=== PATIENT | female | born 1955 | race African-American/Black ===

== ENCOUNTER 2017-08-07 12:14 | Emergency (ER) | payer MEDICAID ==
[~2017-08-07] VITALS: Ht 160 cm; Wt 86.0 kg
[2017-08-07] MEDS ORDERED: LOSA25TA12 PO (12:27)
[2017-08-07 15:10] VITALS: BP 179/88
[2017-08-07] MEDS ORDERED: NITROGLYCERIN OINT 1GM/INCH UDPKT TD STA (15:52)
[2017-08-07] MEDS ORDERED: ASPIRIN 325MG EC TABLET PO ONE (16:00)
[2017-08-07 16:14] LABS: BASOPHILS % 0.5 % (0.0-2.0); EOSINOPHILS % 1.2 % (0.0-5.0); HEMATOCRIT. 37.2 % (36.0-48.0); HEMOGLOBIN. 12.4 g/dL (12.0-16.0); LYMPHOCYTES % 17.1 % (20.0-50.0); MEAN CORPUSCULAR HEMOGLOBIN 28.5 pg (28.0-32.0); MEAN CORPUSCULAR VOLUME 85.3 fL (81.0-99.0); MEAN PLATELET VOLUME 8.8 fl (7.4-10.4); MONOCYTES % 9.1 % (2.0-8.0); NEUTROPHILS % 72.1 % (40.0-76.0); PLATELET 268 x1000/uL (130-400); RED BLOOD CELL COUNT 4.36 mill/uL (4.2-5.4); RED CELL DISTRIBUTION WIDTH 14.6 % (11.6-14.6)
[2017-08-07 16:24] LABS: D-DIMER 0.81 mg/L FEU (<0.50); PARTIAL THROMBOPLASTIN TIME 28.6 sec (23.4-31.0); PROTHROMBIN TIME 10.7 sec (9.4-11.6)
[2017-08-07 16:31] LABS: CHLORIDE 109 mEq/L (98-107)
== END 2017-08-07 18:54 | disposition left against medical advice (07) ==
LOC: ER 14:01
DX: R07.89 Other chest pain (principal); R05 Cough; I10 Essential (primary) hypertension; Z98.890 Other specified postprocedural states
CPT/HCPCS: 36415; 71045; 80053; 83690; 83880; 84484; 85025; 85379; 85610; 85730; 93005; 99285; Z7610

== ENCOUNTER 2018-10-21 10:30 | Emergency (ER) | payer MEDICAID ==
[~2018-10-21] VITALS: Ht 165.1 cm; Wt 95.0 kg
[~2018-10-21 10:30] MED LIST: LOSA25TA12 PO
[2018-10-21] MEDS ORDERED: IBUPROFEN 600MG TABLET PO STA (11:46)
[2018-10-21] MEDS ORDERED: ALBUTEROL (0.083%) 2.5MG/3ML NEB HHN ONE (12:00)
[2018-10-21] MEDS ORDERED: LOSARTAN POTASSIUM 100 MG TABLET PO ONE (13:00)
[2018-10-21 14:45] VITALS: BP 158/82
== END 2018-10-21 14:47 | disposition home or self-care (01) ==
LOC: ER 10:30
DX: M79.10 Myalgia, unspecified site (principal); R05 Cough; I10 Essential (primary) hypertension; Z98.890 Other specified postprocedural states; Z79.899 Other long term (current) drug therapy
CPT/HCPCS: 71045; 87804; 93005; 94640; 99284; J7611

== ENCOUNTER 2021-04-19 11:16 | Emergency (ER) | payer OTHER, MEDICAID ==
[~2021-04-19] VITALS: Ht 165.1 cm; Wt 90.0 kg
[~2021-04-19 11:16] MED LIST changes: -LOSA25TA12 PO; +LOSA25TA26 PO
[2021-04-19] MEDS ORDERED: SODIUM CHLORIDE 0.9% 1,000 ML IV ONE (16:00)
[2021-04-19] MEDS ORDERED: NITROGLYCERIN 0.4MG TABLET SL SL PRN (16:15)
[2021-04-19 16:32] LABS: BASOPHILS % 0.3 % (0.0-2.0); EOSINOPHILS % 0.6 % (0.0-5.0); HEMATOCRIT. 32.9 % (36.0-48.0); HEMOGLOBIN. 11.3 g/dL (12.0-16.0); LYMPHOCYTES % 29.6 % (20.0-50.0); MEAN CORPUSCULAR HEMOGLOBIN 29.9 pg (28.0-32.0); MEAN CORPUSCULAR VOLUME 87.2 fL (81.0-99.0); MEAN PLATELET VOLUME 8.3 fl (7.4-10.4); MONOCYTES % 4.2 % (2.0-8.0); NEUTROPHILS % 65.3 % (40.0-76.0); PLATELET 372 x1000/uL (130-400); RED BLOOD CELL COUNT 3.78 mill/uL (4.2-5.4)
[2021-04-19 16:38] LABS: CHLORIDE 102 mEq/L (98-107)
[2021-04-19 16:42] LABS: CLARITY URINE CLOUDY (CLEAR); COLOR URINE YELLOW (YELLOW); KETONES URINE NEGATIVE (NEGATIVE); LEUKOCYTE ESTERASE URINE NEGATIVE (NEGATIVE); NITRITE URINE NEGATIVE (NEGATIVE); OCCULT BLOOD URINE NEGATIVE (NEGATIVE); PROTEIN URINE NEGATIVE (NEGATIVE); UROBILINOGEN URINE 0.2 E.U./dL (0.2-1.0)
[2021-04-19 16:44] LABS: D-DIMER 0.21 mg/L FEU (<0.50); PARTIAL THROMBOPLASTIN TIME 30.9 sec (23.4-31.0); PROTHROMBIN TIME 10.9 sec (9.6-11.0)
[2021-04-19] MEDS ORDERED: ASPIRIN 325MG EC TABLET PO ONE (17:00)
[2021-04-19 19:33] VITALS: BP 118/74
== END 2021-04-19 19:12 | disposition left against medical advice (07) ==
LOC: ER 11:16
DX: R07.89 Other chest pain (principal); R42 Dizziness and giddiness; D25.9 Leiomyoma of uterus, unspecified; N85.8 Other specified noninflammatory disorders of uterus; I10 Essential (primary) hypertension
CPT/HCPCS: 36415; 71045; 76830; 76856; 80053; 81003; 83880; 84484; 85025; 85379; 85610; 85730; 86850; 86900; 86901; 93005; 99285; J7030

== ENCOUNTER 2021-05-27 09:53 | Emergency (ER) | payer OTHER, MEDICAID ==
[~2021-05-27] VITALS: Ht 160 cm; Wt 93.0 kg
[2021-05-27] MEDS ORDERED: IBUPROFEN 400MG TABLET PO ONE (12:30)
[2021-05-27 14:44] LABS: BASOPHILS % 0.6 % (0.0-2.0); EOSINOPHILS % 1.2 % (0.0-5.0); HEMATOCRIT. 39.8 % (36.0-48.0); HEMOGLOBIN. 12.8 g/dL (12.0-16.0); LYMPHOCYTES % 51.5 % (20.0-50.0); MEAN CORPUSCULAR HEMOGLOBIN 29.1 pg (28.0-32.0); MEAN CORPUSCULAR VOLUME 90.4 fL (81.0-99.0); MEAN PLATELET VOLUME 9.1 fl (7.4-10.4); MONOCYTES % 5.8 % (2.0-8.0); NEUTROPHILS % 40.9 % (40.0-76.0); PLATELET 296 x1000/uL (130-400); RED CELL DISTRIBUTION WIDTH 15.7 % (11.6-14.6)
[2021-05-27 15:02] LABS: CHLORIDE 105 mEq/L (98-107)
[2021-05-27 15:08] LABS: ETHANOL BLOOD < 10 mg/dL
[2021-05-27 16:27] LABS: CLARITY URINE CLEAR (CLEAR); COLOR URINE YELLOW (YELLOW); KETONES URINE NEGATIVE (NEGATIVE); LEUKOCYTE ESTERASE URINE TRACE (NEGATIVE); NITRITE URINE NEGATIVE (NEGATIVE); OCCULT BLOOD URINE 1+ (NEGATIVE); PH URINE 5.5 (4.5-8.0); PROTEIN URINE NEGATIVE (NEGATIVE); SPECIFIC GRAVITY URINE 1.013 (1.005-1.030); UROBILINOGEN URINE 0.2 E.U./dL (0.2-1.0)
[2021-05-27 16:48] LABS: *BARBITURATES SCREEN URINE NEGATIVE (NEGATIVE); *COCAINE SCREEN URINE NEGATIVE (NEGATIVE); CANNABINOID URINE SCREEN NEGATIVE (NEGATIVE); METHADONE URINE SCREEN NEGATIVE (NEGATIVE); OPIATES URINE SCREEN NEGATIVE (NEGATIVE); PHENCYCLIDINE URINE SCREEN NEGATIVE (NEGATIVE)
[2021-05-27 16:49] LABS: *BENZODIAZEPINES SCREEN URINE NEGATIVE (NEGATIVE)
[2021-05-27 16:56] LABS: *AMPHETAMINES SCREEN URINE NEGATIVE (NEGATIVE)
[2021-05-27] MEDS ORDERED: IOHEXOL-350 100 ML BOTTLE ONE (19:30)
[2021-05-27] MEDS ORDERED: TOPUD MT (19:39)
[2021-05-27] MEDS ORDERED: IBUP-2028 MT (19:40)
[2021-05-27 20:15] VITALS: BP 140/76
== END 2021-05-27 20:20 | disposition home or self-care (01) ==
LOC: ER 09:53
DX: R51.9 Headache, unspecified (principal); I10 Essential (primary) hypertension; G52.1 Disorders of glossopharyngeal nerve
CPT/HCPCS: 36415; 70496; 70498; 80053; 80305; 80320; 81003; 84484; 85025; 93005; 99285; Q9967; G0480

== ENCOUNTER 2021-11-15 17:11 | Emergency (ER) | payer OTHER, MEDICAID ==
[~2021-11-15] VITALS: Ht 160 cm; Wt 85.0 kg
[~2021-11-15 17:11] MED LIST changes: +IBUP-2028 MT; +TOPUD MT
[2021-11-15] MEDS ORDERED: MORPHINE SULFATE 4 MG/ML CPJ (NOT FOR IM USE) IV ONE (18:00)
[2021-11-15] MEDS ORDERED: SODIUM CHLORIDE 0.9% 1,000 ML IV ONE ×2 (18:00→21:15)
[2021-11-15 18:15] LABS: BASOPHILS % 1.2 % (0.0-2.0); HEMATOCRIT. 29.3 % (36.0-48.0); HEMOGLOBIN. 9.9 g/dL (12.0-16.0); LYMPHOCYTES % 15.1 % (20.0-50.0); MEAN CORPUSCULAR HEMOGLOBIN 30.6 pg (28.0-32.0); MEAN CORPUSCULAR VOLUME 90.3 fL (81.0-99.0); MEAN PLATELET VOLUME 9.5 fl (7.4-10.4); MONOCYTES % 1.2 % (2.0-8.0); NEUTROPHILS % 82.5 % (40.0-76.0); PLATELET 159 x1000/uL (130-400); RED BLOOD CELL COUNT 3.24 mill/uL (4.2-5.4); RED CELL DISTRIBUTION WIDTH 19.2 % (11.6-14.6)
[2021-11-15 18:27] LABS: CHLORIDE 100 mEq/L (98-107)
[2021-11-15 23:45] VITALS: BP 144/56
== END 2021-11-15 23:56 | disposition home or self-care (01) ==
LOC: ER 17:11
DX: C50.912 Malignant neoplasm of unspecified site of left female breast (principal); R25.2 Cramp and spasm; R07.89 Other chest pain; I10 Essential (primary) hypertension; E87.6 Hypokalemia; Z92.21 Personal history of antineoplastic chemotherapy
CPT/HCPCS: 36415; 70450; 71045; 80053; 82330; 83735; 84484; 85025; 96361; 96374; 99285; J2270; J7030